=== PATIENT | female | born 1960 | race Caucasian/White ===

== ENCOUNTER 2017-11-18 15:19 | Emergency (ER) | payer OTHER ==
[~2017-11-18] VITALS: Ht 165.1 cm; Wt 107.5 kg
[2017-11-18 16:15] VITALS: BP 145/80
[2017-11-18] MEDS ORDERED: IBUPROFEN 600 MG TABLET PO ONE ×2 (17:30→18:24)
== END 2017-11-18 18:30 | disposition home or self-care (01) ==
LOC: ER 15:23
DX: J11.1 Influenza due to unidentified influenza virus with other respiratory manifestations (principal); E11.9 Type 2 diabetes mellitus without complications; I10 Essential (primary) hypertension; Z85.41 Personal history of malignant neoplasm of cervix uteri; Z90.710 Acquired absence of both cervix and uterus
CPT/HCPCS: 71045; 99283; A4606; Z7610